=== PATIENT | female | born 1980 | race Caucasian/White ===

== ENCOUNTER 2021-02-26 08:33 | Outpatient (REF) | payer OTHER, SELFPAY ==
--- NOTE | ~2021-02-26 | XR_ITS ---
EXAMINATION: XR CHEST CLINICAL INFORMATION: Shortness of breath COMPARISON: None TECHNIQUE: 2 views of the chest were obtained. FINDINGS: No significant abnormality is noted involving the heart, lungs, mediastinum, bony thorax or soft tissues. XR/XR chest 2V IMPRESSION: Unremarkable examination.
--- NOTE | 2021-02-26 10:21 | ECG_ITS ---
Test Reason : R06.002 Blood Pressure : / mmHG Vent. Rate : 073 BPM Atrial Rate : 073 BPM P-R Int : 160 ms QRS Dur : 084 ms QT Int : 378 ms P-R-T Axes : 020 035 021 degrees QTc Int : 416 ms Normal sinus rhythm Normal ECG No previous ECGs available Referred By: Ivette Pablo Electronically Signed By:ASHISH ALLEN
[2021-02-26 11:25] LABS: MANUAL DIFF FLAG NO
[2021-02-26 11:37] LABS: Basophils Absolute Auto 0.1 X10*3/uL (0.0-0.2); Basophils Percent Auto 1.3 % (0-2); Eosinophils Absolute Auto 0.3 X10*3/uL (0.0-0.4); Eosinophils Percent Auto 2.7 % (0-4); Hematocrit 42.1 % (37-47); Hemoglobin 13.5 g/dl (12.0-16.0); Imm Gran Abs Auto 0.04 X10*3/uL (0.00-0.03); Imm Gran Pct Auto 0.4 % (0.0-0.4); Lymphocytes Absolute Auto 2.9 X10*3/uL (1.2-4.9); Lymphocytes Percent Auto 30.8 % (20-40); Mean Corpuscular HGB Conc 32.1 g/dl (31.0-35.0); Mean Corpuscular Hemoglobin 28.6 pg (27.0-33.0); Mean Corpuscular Volume 89.2 fL (80-98); Mean Platelet Volume 9.7 fL (9.4-12.3); Monocytes Absolute Auto 0.7 X10*3/uL (0.1-1.2); Monocytes Percent Auto 7.5 % (2-11); Neutrophils Absolute Auto 5.5 X10*3/uL (2.0-8.3); Neutrophils Percent Auto 57.3 % (45-73); Platelet Count 388 X10*3/uL (160-400); Red Blood Count 4.72 X10*6/uL (4.20-5.50); Red Cell Distribution Width 13.5 % (11.0-16.0); White Blood Count 9.5 X10*3/uL (4.8-10.8)
[2021-02-26 11:44] LABS: Glucose Urine UA NEG (NEG); Leukocyte Esterase Urine NEG (NEG); Nitrite Urine NEG (NEG); Specific Gravity - Urine >= 1.030 (1.005-1.025); Urine Blood NEG (NEG); Urine Ketones NEG (NEG); Urine Protein NEG (NEG-TRACE)
[2021-02-26 11:46] LABS: UPreg QC Valid YES; Urine Pregnancy NEGATIVE (NEGATIVE)
[2021-02-26 11:51] LABS: Color Urine YELLOW
[2021-02-26 11:52] LABS: Appearance Urine CLEAR
[2021-02-26 11:53] LABS: Alanine Aminotransferase 22 U/L (0-31); Albumin Level 4.4 g/dL (3.5-5.0); Alkaline Phosphatase 92 U/L (39-117); Anion Gap 13 (12-20); Aspartate Amino Transferase 15 U/L (5-31); Bilirubin Total 0.4 mg/dL (0.0-1.0); Blood Urea Nitrogen 14 mg/dL (9-16); Calcium 9.2 mg/dL (8.4-10.2); Carbon Dioxide 25 mmol/L (22-29); Chloride 109 mmol/L (96-108); Estimated Glomerular Filt Rate > 60; Glucose Fasting 91 mg/dL (60-99); Potassium 4.6 mmol/L (3.3-5.1); Sodium 142 mmol/L (135-145); Total Protein 7.1 g/dL (6.5-8.0)
== END 2021-02-26 08:34 | disposition home or self-care (01) ==
LOC: HO.LAB 08:33
PROVIDERS: PCP Internal Medicine; Visit Provider Surgery
DX: Z01.818 Encounter for other preprocedural examination (principal); K82.4 Cholesterolosis of gallbladder; R06.02 Shortness of breath; E66.9 Obesity, unspecified; Z91.013 Allergy to seafood; Z90.79 Acquired absence of other genital organ(s)
CPT/HCPCS: 36415; 71046; 80053; 81003; 81025; 85025; 86850; 86900; 93005

== ENCOUNTER 2021-03-10 07:10 | Day surgery (SDC) | payer OTHER, SELFPAY ==
[2021-03-03 12:52] VITALS: BMI 37.7
--- NOTE | 2021-03-08 13:50 | MHC.SHP ---
Pre-Procedural Eval Section B Chief Complaint: cholesterolosis of gallbladder Allergies: Allergies Allergy/AdvReac Type Severity Reaction Status Date / Time seafood Allergy Severe Anaphylaxis Verified 02/26/21 09:40 Plan I have reviewed the history and physical and performed a pertinent physical examination on my patient. No changes have occurred unless specified.
[2021-03-10] VITALS (15 sets, daily range): BP systolic 117–134; BP diastolic 59–82; PULSE 69–88; RESP 16–18; TEMP 36.3–36.7; O2SAT 90–100
[2021-03-10 08:17] LABS: COVID-19 Test Negative (Negative)
--- NOTE | 2021-03-10 08:36 | HO.ANESPROP2 ---
[facility] Active Problems Active Problems: All Active Problems (Updated 03/03/21 @ 12:53 by Comfort Schmidt) Polyp of gallbladder (Acute) Preoperative examination (Acute) Shortness of breath (Acute) Past Medical History Medical History Asthma COVID-19 vaccine administered Obesity Family History Family History Mother COPD (chronic obstructive pulmonary disease) Asthma Diverticulitis Father No problems noted. Sister No problems noted. Brother No problems noted. Daughter No problems noted. Daughter No problems noted. Daughter No problems noted. Surgical History Surgical History History of bilateral salpingectomy History of carpal tunnel release History of surgical removal of ganglion cyst History of tonsillectomy and adenoidectomy Hx of section Hx of tubal ligation S/P LASIK surgery of both eyes Social History Social History Household Members: Family Housing: House Are you a primary rn home care to a significant other at home: No Do you presently have visiting nurse or other home services: No Alcohol intake: current Alcohol intake frequency: holidays/special occasions only Smoking Status: Never smoker Use of substances other than those prescribed or required for medical reasons: No Have you been hit, kicked, punched, or otherwise hurt by someone within the past year? If so, by whom?: No Advance Directives Information Provided: No Recently lost weight without trying: No Meds Allergies Allergy/AdvReac Type Severity Reaction Status Date / Time seafood Allergy Severe Anaphylaxis Verified 02/26/21 09:40 Active Medications: Current Medications Generic Name Dose Route Start Last Admin Trade Name Freq PRN Reason Stop Dose Admin Lactated Ringer's 1,000 mls @ 50 mls/hr 03/10/21 07:15 Lr IV .Q20H [facility] Home Medications Medication Instructions Recorded Confirmed Last Taken Type albuterol sulfate [Ventolin HFA] 2 puff INHALATION Q4-6H PRN 03/03/21 03/03/21 Unknown History Exam Exam Date and Time: March 10, 2021 0836 Height,Weight and Vital Signs: Height 5 ft 2 in Weight 93.621 kg Last Vital Signs Temp 97.3 F 03/10/21 08:11 Pulse 88 03/10/21 08:11 Resp 16 03/10/21 08:11 BP 118/68 03/10/21 08:11 Pulse Ox 96 03/10/21 08:11 Pertinent Lab Results Pertinent Lab Results: Laboratory Tests 02/26/21 03/10/21 10:30 07:52 COVID-19 (APRIL) Negative COVID-19 Clin Com See Note Blood Type A Positive Antibody Screen NEGATIVE Airway Mallampati Class: II TM Dist: >3cm Neck ROM: Full Loose/Missing/Broken Teeth: No Heart: RRR Lungs: CTA Assessment and Plan Assessment Anesthesia Assessment: Anesthesia Plan Discussed and Chart Reviewed Final Anesthetic Review NPO: Yes ASA Class: II Final Preanesthetic Review: Meds/Allgs Chart Reviewed, Consent Obtained/Reviewed and Anes Risks/Benef Reviewed Patient Risk: Low Procedure Risk: Intermediate Anesthetic Plan Anesthetic Plan: GA Disposition: Standard PACU
[2021-03-10] MEDS: Lactated Ringers 1,000 ML 50 ML IV (08:42)
--- NOTE | 2021-03-10 11:22 | PM.OP ---
Brief Operative Note Date of Service: 03/10/21 Pre-op diagnosis: Gallbladder polyps greater than 1 cm in size Post-op diagnosis: same Procedure: Laparoscopic cholecystectomy Implants: None Surgeon: Ivette Pablo MD Anesthesia: GETA Pyrotechnician: Laya Dubois Estimated blood loss (mL): 5 Pathology: other (Gallbladder) Condition: stable Disposition: PACU
--- NOTE | 2021-03-10 11:23 | P.OP_ITS ---
Operative Note Operative Note Date of Service: 03/10/21 Narrative: Patient was brought into the operating room, placed on operating table in the supine position. Normal DVT prophylaxis was instituted. Patient received 2 g of IV cefotetan preoperatively. General anesthesia was induced. The abdomen was prepped and draped in the normal sterile fashion using ChloraPrep. A safety time-out was performed. Next a mixture of 1% lidocaine with epinephrine and 0.25% Marcaine plain was used to anesthetize the planned incision site in the left upper quadrant located medially. A 11. Scalpel was used to make a 5 mm. A Veress needle was placed in left upper quadrant through this incision. Three pops were heard going through the fascia. A saline drop test was used to confirm that the Veress needle was intra-abdominal. The abdominal cavity was insufflated to 15 mm mercury. An Optiview technique was used to place a 5 mm port in the patient's left upper quadrant. A 5 mm 30 degree laparoscoped was introduced into the abdominal cavity was surveyed and was normal with the exception of a small amount of omentum adherent to the lower midline surgical abdominal wall. Next the local anesthetic was used to anesthetize the planned supraumbilical incision site. A 11. Scalpel used to m dana a 1.5 cm longitudinal supraumbilical surgical incision. The subcutaneous tissues were dissected down to the level of the fascia. The fascia was grasped did between 2 Mahad clamps and entered using a 11. Scalpel for about 1 cm vertically. An 0 Vicryl suture was placed on either side of the open fascia. A finger was used to bluntly gain access to the intra-abdominal cavity. A 12 mm Escalona trocar was introduced into the abdomen and secured to the abdominal wall using sutures on the fascia. Next 2 additional 5 mm ports were placed. One port was placed in the right upper quadrant laterally and 1 more medially. The patient was placed in reverse Trendelenburg and left side tilted down. A grasper was placed through the right lateral port and used to grasp the fundus of the gallbladder and retracted it cephalad. Another grasper was used to grasp the infundibulum of the gallbladder retracted inferior and laterally. We cleared the cystic artery and cystic duct circumferentially and the distal 1/3 of the gallbladder with the gallbladder fossa. This gave us the critical view of safety. We then placed 3 clips on the cystic duct distal to the gallbladder 1 clip on the cystic duct proximal to the gallbladder. We placed 1 clip on the cystic artery proximal to the gallbladder and 2 clips on the cystic artery distal to the gallbladder and transected both structures in between clips. We took the remainder of the gallbladder off the gallbladder fossa and placed in Endo-Catch bag and removed it from the abdomen. We then evaluated the gallbladder fossa it was hemostatic there was no evidence of any bile draining or any bleeding noted. The clips were in place on the cystic artery and cystic duct stumps. We then removed the 5 mm ports under direct vision there was no bleeding noted from these port sites. We desufflated the abdomen through the last remaining port and removed the last port and laparoscope. We reapproximated the fascial defect at the umbilicus using a [id number] 0 Vicryl suture and tied the original fascial sutures over that closure. There was no residual fascial defect. We placed an additional amount of local anesthetic into the fascia closure site. We closed all skin incisions with a 4 Monocryl subcuticular stitch. We cleaned and dried the skin and applied Dermabond skin glue to all skin incisions. All counts were correct at the end the case there were no complications. The patient was awake and in stable condition prior to extubation and transfer to the recovery room.
[2021-03-10] MEDS: fentaNYL citrate/PF 100 MCG/2 ML VIAL 50 MCG IVPUSH (11:29)
[2021-03-10] MEDS: oxyCODONE HCl Immed Release 5 MG TABLET 10 MG PO (11:31)
[2021-03-10] MEDS: fentaNYL citrate/PF 100 MCG/2 ML VIAL 25 MCG IVPUSH ×2 (11:41→12:25)
[2021-03-10] MEDS: Acetaminophen 325 MG TABLET 650 MG PO (12:28)
== END 2021-03-10 13:59 | disposition home or self-care (01) ==
PROVIDERS: PCP Internal Medicine; Visit Provider Surgery
PROC: 0FT44ZZ Resection of Gallbladder, Percutaneous Endoscopic Approach (ICD-10-PCS; CPT 47562; principal; 2021-03-10 09:10)
DX: K80.10 Calculus of gallbladder with chronic cholecystitis without obstruction (principal); J45.909 Unspecified asthma, uncomplicated; Z79.899 Other long term (current) drug therapy
CPT/HCPCS: 47562; 36415; 86850; 86900; 87635; 88304; J1100; J1885; J2250; J2405; J2550; J3010

== ENCOUNTER → 2021-03-25 10:17 | Outpatient (BNVA) | payer OTHER, SELFPAY | PROVIDERS: PCP Internal Medicine; Visit Provider Surgery ==